=== PATIENT | female | born 1990 ===

== ENCOUNTER 2022-10-16 16:03 | Emergency (ER) | payer OTHER ==
[~2022-10-16] VITALS: Ht 152.4 cm; Wt 58.4 kg
[2022-10-16 16:25] VITALS: BP 120/67
[2022-10-16 17:26] LABS: COVID AG,FIA SOURCE NASOPHARYNGEAL
[2022-10-16 17:46] LABS: INFLUENZA TYPE A NEGATIVE FOR TYPE A (NEGATIVE); INFLUENZA TYPE B NEGATIVE FOR TYPE B (NEGATIVE)
[2022-10-16 18:06] LABS: APPEARANCE,URINE CLEAR (CLEAR); BILIRUBIN,URINE NEGATIVE (NEGATIVE); GLUCOSE, URINE (UA) NEGATIVE (NEGATIVE); KETONES,URINE TRACE mg/dL (NEGATIVE); LEUKOCYTE ESTERASE ,URINE NEGATIVE (NEGATIVE); NITRATE,URINE NEGATIVE (NEGATIVE); OCCULT BLOOD,URINE NEGATIVE (NEGATIVE); PROTEIN,URINE TRACE mg/dL (NEGATIVE); SPECIFIC GRAVITIY, URINE 1.025 (1.003-1.030); UROBILINOGEN,URINE <=1.0 mg/dL (<=1.0)
== END 2022-10-16 18:47 | disposition home or self-care (01) ==
LOC: EMS 16:28
DX: B34.9 Viral infection, unspecified (principal); Z88.5 Allergy status to narcotic agent; Z20.822 Contact with and (suspected) exposure to COVID-19
CPT/HCPCS: 81003; 87430; 87804; 99283